=== PATIENT | female | born 1945 | race Caucasian/White ===

== ENCOUNTER → 2016-10-03 | Outpatient (REF) | payer MEDICARE, OTHER ==
[~2016-10-03] MED LIST: ALEN70TA39 PO; DOCU10CA PO; ELIQ5TAB PO; FAMO1TAB11 PO; FEOS45TA3 PO; LISI-538 PO; MULT1CHW21 PO; PROA1AER INH; SYMB16INH INH; TYLE325T5 PO; VITA100L PO; VITA200016 PO; VITA500T53 PO
[2016-10-03 14:25] LABS: FOLATE > 24.0 NG/ML; VITAMIN B12 LEVEL 2000 PG/ML
[2016-10-03 14:37] LABS: FERRITIN 70 NG/ML (8-252)
== END ==
LOC: M LAB REF 13:21
PROVIDERS: ATTEND Internal Medicine
DX: K91.2 Postsurgical malabsorption, not elsewhere classified (principal)

== ENCOUNTER → 2017-01-13 | Outpatient (CLI) | payer MEDICARE, OTHER ==
[~2017-01-13] MED LIST changes: -PROA1AER INH; +PROAAER10 INH
--- NOTE | 2017-01-16 09:37 | DEXA ---
AP SPINE L1 - L4 0.980 -1.7 -0.1 LT FEMUR TOTAL 0.817 -1.5 -0.1 RT FEMUR TOTAL 0.788 -1.7 -0.3 TOTAL BODY TOTAL OTHER DUAL FEMUR FRAX* ASSESSMENT Risk factors: Not performed. 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 The density of the spine has decreased 5.2% since 12/25/2014. The density of the left hip has decreased 5.8% since 12/25/2014. The density of the right hip has decreased 9.4% since 12/25/2014. The decreased density of the spine does represent a significant change. The decreased density of the left hip does represent a significant change. The decreased density of the right hip does represent a significant change. FOLLOW-UP: Recommendation for the next bone density exam: 2 years. CEDRICK
== END ==
LOC: M WHC 09:43
PROVIDERS: ATTEND Internal Medicine Hematology & Oncology
DX: D05.11 Intraductal carcinoma in situ of right breast (principal); Z17.0 Estrogen receptor positive status [ER+]; M85.88 Other specified disorders of bone density and structure, other site

== ENCOUNTER → 2017-01-16 | Outpatient (CLI) | payer MEDICARE, OTHER ==
--- NOTE | 2017-01-16 12:38 | REPMRS ---
Patient History Patient is postmenopausal and has history of cancer in the right breast at age 69. Family history of pancreatic cancer in sister. Taking tamoxifen for 2 years. Digital Mammo Screening Bilat: January 16, 2017 - Exam #: [id number] Bilateral CC and MLO view(s) were taken. Technologist: Linda Lyn, Technologist Prior study comparison: January 01, 2015, right breast digital mammo diagnostic unilateral performed at [facility]. December 25, 2014, digital woman screen mammo, performed at [facility]. FINDINGS: There are scattered fibroglandular densities. There has been no change in the appearance of the mammogram from the prior studies. There is a mild amount of residual fibroglandular tissue which is fairly symmetric. There is no interval development of dominant mass, architectural distortion, or clustered microcalcification suggestive of malignancy. ASSESSMENT: BI-RADS/ACR category 1 mammogram. Negative. Recommendation Routine screening mammogram in 1 year (for women over age 40). This mammogram was interpreted with the aid of an FDA-approved computer-aided dectection system. Electronically Signed By: Lukasz Powell MD 01/16/17 0805
== END ==
LOC: M RAD 11:05
PROVIDERS: ATTEND Internal Medicine Hematology & Oncology
DX: Z12.31 Encounter for screening mammogram for malignant neoplasm of breast (principal); D05.11 Intraductal carcinoma in situ of right breast; Z17.0 Estrogen receptor positive status [ER+]; Z78.0 Asymptomatic menopausal state

== ENCOUNTER 2018-01-23 12:51 | Day surgery (SDC) | payer MEDICARE, OTHER ==
[2018-01-23] MEDS: NS 1,000 ML IV (06:00)
[~2018-01-23 12:51] MED LIST changes: -ALEN70TA39 PO; -DOCU10CA PO; -ELIQ5TAB PO; -FAMO1TAB11 PO; -FEOS45TA3 PO; +LIDOCAINE 2% INJ 100 MG/5 ML SDV (FOR ANES.) As Ordered; -LISI-538 PO; -MULT1CHW21 PO; -PROAAER10 INH; +PROPOFOL 200 MG/20 ML VIAL As Ordered; -SYMB16INH INH; -TYLE325T5 PO; -VITA100L PO; -VITA200016 PO; -VITA500T53 PO
== END 2018-01-23 15:37 | disposition home or self-care (01) ==
LOC: M OPP 12:51
DX: Z12.11 Encounter for screening for malignant neoplasm of colon (principal); M19.90 Unspecified osteoarthritis, unspecified site; J45.909 Unspecified asthma, uncomplicated; J44.9 Chronic obstructive pulmonary disease, unspecified; Z86.711 Personal history of pulmonary embolism; Z98.84 Bariatric surgery status; Z85.3 Personal history of malignant neoplasm of breast; Z88.2 Allergy status to sulfonamides; Z79.899 Other long term (current) drug therapy; Z83.71 Family history of colonic polyps; Z87.891 Personal history of nicotine dependence; Z80.52 Family history of malignant neoplasm of bladder; Z80.8 Family history of malignant neoplasm of other organs or systems
CPT/HCPCS: G0121

== ENCOUNTER → 2019-02-19 | Outpatient (REF) | payer MEDICARE, OTHER ==
[~2019-02-19] MED LIST changes: +ALEN70TA74 PO; +ANAS1TAB2 PO; +DOCU10CA PO; +ELIQ5TAB PO; +FAMO1TAB11 PO; +FEOS45TA3 PO; -LIDOCAINE 2% INJ 100 MG/5 ML SDV (FOR ANES.) As Ordered; +LISI-538 PO; +MAGN400C2 PO; +MULT1CHW21 PO; +PROAAER10 INH; -PROPOFOL 200 MG/20 ML VIAL As Ordered; +SYMB16INH INH; +TYLE325T5 PO; +VITA100L PO; +VITA200016 PO; +VITA500T17 PO; +VITAE20CA PO
[2019-02-19 20:16] LABS: FERRITIN 45 NG/ML (8-252)
[2019-02-19 20:21] LABS: FOLATE > 24.0 NG/ML; VITAMIN B12 LEVEL 1676 PG/ML
== END ==
LOC: M LAB REF 19:23
PROVIDERS: ATTEND Internal Medicine
DX: Z98.84 Bariatric surgery status (principal); Z79.899 Other long term (current) drug therapy

== ENCOUNTER → 2020-03-03 | Outpatient (REF) | payer MEDICARE, OTHER ==
[2020-03-03 14:10] LABS: FERRITIN 22 NG/ML (8-252)
[2020-03-03 14:14] LABS: FOLATE > 24.0 NG/ML; VITAMIN B12 LEVEL 1182 PG/ML
== END ==
LOC: M LAB REF 12:26
PROVIDERS: ATTEND Internal Medicine
DX: Z98.84 Bariatric surgery status (principal); D50.9 Iron deficiency anemia, unspecified

== ENCOUNTER → 2021-01-18 | Outpatient (REF) | payer MEDICARE, OTHER ==
[~2021-01-18] MED LIST changes: -ALEN70TA74 PO; +ALEN70TA82 PO; -LISI-538 PO; +LISI20TA33 PO
== END ==
LOC: M LAB REF 16:37
PROVIDERS: ATTEND Internal Medicine
DX: Z98.84 Bariatric surgery status (principal)

== ENCOUNTER → 2021-09-30 | Outpatient (REF) | payer MEDICARE, OTHER ==
[2021-09-30 13:23] LABS: FERRITIN 59 NG/ML (8-252)
[2021-09-30 13:30] LABS: VITAMIN B12 LEVEL 1002 PG/ML
== END ==
LOC: M LAB REF 12:26
PROVIDERS: ATTEND Internal Medicine
DX: Z98.84 Bariatric surgery status (principal); Z79.899 Other long term (current) drug therapy

== ENCOUNTER → 2022-02-13 | Outpatient (CLI) | payer MEDICARE, OTHER | LOC: M LABSMTC 11:46 | PROVIDERS: ATTEND Anesthesiology | DX: Z01.812 Encounter for preprocedural laboratory examination (principal); Z20.822 Contact with and (suspected) exposure to COVID-19 ==

== ENCOUNTER 2022-02-17 08:13 | Day surgery (SDC) | payer MEDICARE, OTHER ==
[~2022-02-17] VITALS: Ht 165.1 cm; Wt 68.0 kg
[~2022-02-17 08:13] MED LIST changes: +CETI-24 PO; +OYST1TAB PO; +VITA100093 PO; +VITMTA PO; +dexameTHASONE 4 MG/ML 1ML VIAL (J1100 PER 1MG) IV ONE
[2022-02-17] MEDS ORDERED: LR 1,000 ML IV SCH ×3 (09:00→12:25)
[2022-02-17] MEDS ORDERED: SCOPOLAMINE 1MG TRANSDERMAL PATCH TOP ONE (10:00)
[2022-02-17] MEDS ORDERED: MIDAZOLAM INJ 2MG/2ML VIAL (J2250 PER 1MG) As Ordered ONE (10:09)
[2022-02-17] MEDS ORDERED: fentaNYL 100 MCG/2 ML INJECTION As Ordered ONE (10:10)
[2022-02-17] MEDS ORDERED: LIDOCAINE 2% 100MG/5ML SDV (FOR ANES.) As Ordered ONE (10:11)
[2022-02-17] MEDS ORDERED: propofoL 200 MG/20 ML VIAL As Ordered ONE (10:11)
[2022-02-17] MEDS ORDERED: dexameTHASONE 4 MG/ML 1ML VIAL (J1100 PER 1MG) As Ordered ONE (10:13)
[2022-02-17] MEDS ORDERED: ROCURONIUM BROMIDE 50 MG/5 ML VIAL As Ordered ONE (10:16)
[2022-02-17] MEDS ORDERED: LIDOCAINE 1% MDV 20ML VIAL As Ordered ONE (10:29)
[2022-02-17] MEDS ORDERED: NEOSPORIN GU IRRIG 20 ML VIAL As Ordered ONE (10:29)
[2022-02-17] MEDS ORDERED: ACETAMINOPHEN 1000MG 100ML IV BTL (OFIRMEV) (J0131 PER 10MG) As Ordered ONE (10:31)
[2022-02-17] MEDS ORDERED: ONDANSETRON 4MG 2ML VIAL As Ordered ONE (10:57)
[2022-02-17] MEDS ORDERED: SUCCINYLCHOLINE 100 MG/5 ML SYRINGE (J0330) As Ordered ONE (10:57)
[2022-02-17] MEDS ORDERED: LIDOCAINE W/EPINEPHRINE 1% 20ML VIAL As Ordered ONE (11:03)
[2022-02-17] MEDS ORDERED: ePHEDrine SULFATE 25 MG/5 ML(5MG/ML) SYRINGE As Ordered ONE (11:04)
[2022-02-17] MEDS ORDERED: SUGAMMADEX SODIUM 500 MG/5 ML VIAL (BRIDION) As Ordered ONE (11:09)
[2022-02-17] MEDS ORDERED: fentaNYL 100 MCG/2 ML INJECTION IV PRN (11:30)
[2022-02-17] MEDS ORDERED: HYDROMORPHONE HCL 0.5 MG/ 0.5 ML SYRINGE (J1170 PER 1) IV PRN (11:30)
[2022-02-17] MEDS ORDERED: oxyCODONE 5MG TAB PO PRN (11:30)
[2022-02-17] MEDS ORDERED: ONDANSETRON 4MG 2ML VIAL IV PRN (11:30)
[2022-02-17 12:30] VITALS: BP 166/74
== END 2022-02-17 12:50 | disposition home or self-care (01) ==
LOC: M SDC 08:13
PROVIDERS: ATTEND Otolaryngology
DX: J35.9 Chronic disease of tonsils and adenoids, unspecified (principal); J44.9 Chronic obstructive pulmonary disease, unspecified; Z98.84 Bariatric surgery status; Z88.2 Allergy status to sulfonamides
CPT/HCPCS: 42800; 88305; J0131; J0330; J1100; J2405; J3010

== ENCOUNTER → 2022-10-03 | Outpatient (REF) | payer MEDICARE, OTHER ==
[~2022-10-03] MED LIST changes: -dexameTHASONE 4 MG/ML 1ML VIAL (J1100 PER 1MG) IV ONE
[2022-10-03 14:34] LABS: FERRITIN 45.2 NG/ML (7.3-270.7)
[2022-10-03 14:35] LABS: FOLATE > 24.0 NG/ML (>5.4); VITAMIN B12 LEVEL 1863 PG/ML (211-911)
== END ==
LOC: M LAB REF 12:20
PROVIDERS: ATTEND Internal Medicine
DX: Z98.84 Bariatric surgery status (principal)

== ENCOUNTER → 2023-10-04 | Outpatient (REF) | payer MEDICARE, OTHER ==
[2023-10-04 15:46] LABS: FERRITIN 19.7 NG/ML (7.3-270.7)
[2023-10-04 15:53] LABS: FOLATE 19.3 NG/ML (>5.4)
== END ==
LOC: M LAB REF 13:14
PROVIDERS: ATTEND Internal Medicine
DX: Z98.84 Bariatric surgery status (principal); D50.9 Iron deficiency anemia, unspecified

== ENCOUNTER → 2023-10-11 | Outpatient (REF) | payer MEDICARE, OTHER | LOC: M LAB REF 13:21 | PROVIDERS: ATTEND Internal Medicine | DX: N39.0 Urinary tract infection, site not specified (principal) ==

== ENCOUNTER → 2024-02-14 | Outpatient (CLI) | payer MEDICARE, OTHER | LOC: M WUC 10:22 | PROVIDERS: ATTEND Internal Medicine | DX: Z98.84 Bariatric surgery status (principal); J45.909 Unspecified asthma, uncomplicated ==

== ENCOUNTER 2024-02-28 07:37 | Day surgery (SDC) | payer MEDICARE, OTHER ==
[~2024-02-28] VITALS: Ht 162.6 cm; Wt 68.1 kg
[~2024-02-28 07:37] MED LIST changes: +ALBU8.5H INH; +BACL1TAB9 PO; +BREO1INH3 INH; +PHENYLEPHRINE 10% OPHTH SOL 5ML OD PRN; +fentaNYL 100 MCG/2 ML INJECTION As Ordered ONE
[2024-02-28] MEDS: ATROPINE SULFATE 1% OPHTH SOLN 2ML BTL OD SCH (08:12)
[2024-02-28] MEDS: TROPICAMIDE 1% OPHTH SOLN 15ML OD SCH (08:12)
[2024-02-28] MEDS: OFLOXACIN 0.3 % (OCUFLOX) OPTH SOL 5ML OD ONE (08:12)
[2024-02-28] MEDS: LIDOCAINE 3.5 % 1ML OPHTH TOPICAL GEL OU ONE (08:12)
[2024-02-28] MEDS: PHENYLEPHRINE 2.5% OPHTH SOL 2ML OD SCH (08:12)
[2024-02-28] MEDS: CEFUROXIME 1MG/0.1ML INTRACAMERAL INJ As Ordered ONE (09:03)
[2024-02-28] MEDS: LIDOCAINE 1% SDV 5ML VIAL As Ordered ONE (09:03)
[2024-02-28] MEDS: BSS IRRIG/VANCO(10MG)/TOBRA(5MG)/EPINEPH(1:1000-0.5CC)500ML BAG-ORONLY As Ordered ONE (09:03)
[2024-02-28 09:46] VITALS: BP 137/63; TEMP 96.7; O2SAT 95
== END 2024-02-28 09:55 | disposition home or self-care (01) ==
LOC: M SDC 07:37
PROVIDERS: ATTEND Ophthalmology
DX: H25.11 Age-related nuclear cataract, right eye (principal); Z79.899 Other long term (current) drug therapy; Z88.2 Allergy status to sulfonamides
CPT/HCPCS: 66984; J0697; J3010; V2632

== ENCOUNTER 2024-03-13 07:05 | Day surgery (SDC) | payer MEDICARE, OTHER ==
[~2024-03-13] VITALS: Ht 165.1 cm; Wt 68.2 kg
[~2024-03-13 07:05] MED LIST changes: -PHENYLEPHRINE 10% OPHTH SOL 5ML OD PRN; +PHENYLEPHRINE 10% OPHTH SOL 5ML OS PRN; -fentaNYL 100 MCG/2 ML INJECTION As Ordered ONE
[2024-03-13] MEDS ORDERED: fentaNYL 100 MCG/2 ML INJECTION As Ordered ONE (07:10)
[2024-03-13] MEDS: LIDOCAINE 3.5 % 1ML OPHTH TOPICAL GEL OU ONE (07:40)
[2024-03-13] MEDS: ATROPINE SULFATE 1% OPHTH SOLN 2ML BTL OS SCH (07:40)
[2024-03-13] MEDS: OFLOXACIN 0.3 % (OCUFLOX) OPTH SOL 5ML OS ONE (07:40)
[2024-03-13] MEDS: PHENYLEPHRINE 2.5% OPHTH SOL 2ML OS SCH (07:41)
[2024-03-13] MEDS: TROPICAMIDE 1% OPHTH SOLN 15ML OS SCH (07:41)
[2024-03-13] MEDS: LIDOCAINE 1% SDV 5ML VIAL As Ordered ONE (08:50)
[2024-03-13] MEDS: BSS IRRIG/VANCO(10MG)/TOBRA(5MG)/EPINEPH(1:1000-0.5CC)500ML BAG-ORONLY As Ordered ONE (08:50)
[2024-03-13] MEDS: CEFUROXIME 1MG/0.1ML INTRACAMERAL INJ As Ordered ONE (08:50)
[2024-03-13] MEDS ORDERED: ONDANSETRON 4MG 2ML VIAL As Ordered ONE (08:55)
[2024-03-13 08:59] VITALS: BP 159/72; TEMP 96.8; O2SAT 97
== END 2024-03-13 09:17 | disposition home or self-care (01) ==
LOC: M SDC 07:05
PROVIDERS: ATTEND Ophthalmology
DX: H25.12 Age-related nuclear cataract, left eye (principal); Z88.2 Allergy status to sulfonamides; Z79.899 Other long term (current) drug therapy; Z98.41 Cataract extraction status, right eye
CPT/HCPCS: 66984; J0697; J2405; J3010; V2632

== ENCOUNTER → 2024-10-08 | Outpatient (REF) | payer MEDICARE, OTHER ==
[~2024-10-08] MED LIST changes: -PHENYLEPHRINE 10% OPHTH SOL 5ML OS PRN
[2024-10-08 13:05] LABS: FERRITIN 36.7 NG/ML (7.3-270.7)
[2024-10-08 13:07] LABS: FOLATE > 24.0 NG/ML (>5.4)
[2024-10-08 13:08] LABS: VITAMIN B12 LEVEL 1492 PG/ML (211-911)
== END ==
LOC: M LAB REF 11:54
PROVIDERS: ATTEND Internal Medicine
DX: Z98.84 Bariatric surgery status (principal)